=== PATIENT | female | born 2000 | race African-American/Black ===

== ENCOUNTER 2024-10-12 17:11 | Emergency (ER) | payer OTHER, SELFPAY ==
[2024-10-12 17:12] VITALS: BP 162/95
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
[2024-10-12 18:56] LABS: HCG, Urine Qualitative Screen Negative
[2024-10-12] MEDS: TYLENOL 500 MG PO (19:49)
== END 2024-10-12 20:08 | disposition home or self-care (01) ==
LOC: EMR 17:11
PROVIDERS: EMERGENCY PHYSICIAN Emergency Medicine
DX: S06.0X0A Concussion without loss of consciousness, initial encounter (principal); S09.90XA Unspecified injury of head, initial encounter; R68.84 Jaw pain; Y04.2XXA Assault by strike against or bumped into by another person, initial encounter; Y93.89 Activity, other specified; Y92.89 Other specified places as the place of occurrence of the external cause; Y99.0 Civilian activity done for income or pay; R03.0 Elevated blood-pressure reading, without diagnosis of hypertension
CPT/HCPCS: 99284; 70450; 70486; 81025